=== PATIENT | female | born 1960 | race Caucasian/White ===

== ENCOUNTER → 2017-01-02 | Outpatient (CLI) | payer MEDICAID | LOC: BRMIMAGING 15:33 | PROVIDERS: ATTEND Internal Medicine Rheumatology | DX: M05.771 Rheumatoid arthritis with rheumatoid factor of right ankle and foot without organ or systems involvement (principal); M05.772 Rheumatoid arthritis with rheumatoid factor of left ankle and foot without organ or systems involvement; M05.731 Rheumatoid arthritis with rheumatoid factor of right wrist without organ or systems involvement; M05.732 Rheumatoid arthritis with rheumatoid factor of left wrist without organ or systems involvement; M05.741 Rheumatoid arthritis with rheumatoid factor of right hand without organ or systems involvement; M05.742 Rheumatoid arthritis with rheumatoid factor of left hand without organ or systems involvement | CPT/HCPCS: 73100-PO; 73120-PO; 73630-PO ==